=== PATIENT | female | born 1940 | race Caucasian/White ===

== ENCOUNTER 2017-06-07 01:09 | Emergency (ER) | payer MEDICARE, OTHER ==
[2017-06-07 01:09] VITALS: BMI 28.5
[2017-06-07 01:25] VITALS: O2SAT 100
--- NOTE | 2017-06-07 02:03 | C.PDOC ---
History Of Present Illness 76 year old female with a Hx of HTN and diabetes presents to the ER with a complaint of several days of a room spinning sensation, associated with ringing in the right ear. Patient states it occurs when she looks up, raises her chin, or turns her head to either side of the room. Denies headache, recent URI, ear pain, or sore throat. Chief Complaint (Nursing): Dizziness/Lightheaded History Per: Patient History/Exam Limitations: no limitations Onset/Duration Of Symptoms: Days Current Symptoms Are (Timing): Still Present Activity At Onset Of Symptoms: Other (not known) Seizure Or Post-ictal Symptoms: None Possible Causative Factor(s): Vertigo Fall Associated With With Symptoms: No Recent travel outside of the [place]: No - Symptoms Of CVA Associated Symptoms: denies: Impaired Speech, Seizure Activity, New Vision Deficit(Left), New Vision Deficit(Right), Decreased Ability To Walk, New Confusion Past Medical History Reviewed: Historical Data, Nursing Documentation, Vital Signs Vital Signs: Last Vital Signs Temp 98.2 F 06/07/17 01:23 Pulse 108 H 06/07/17 01:23 Resp 18 06/07/17 01:23 BP 172/76 H 06/07/17 01:23 Pulse Ox 100 06/07/17 02:18 - Medical History PMH: Diabetes, HTN, Peripheral Edema ("SOMETIMES IF I EAT THE WRONG FOODS") Surgical History: Appendectomy - [facility] Procedures PH[facility]ICAL THERAPY [facility] (10/04/14) Family History: States: Unknown Family Hx - Social History Hx Alcohol Use: No Hx Substance Use: No - Immunization History Hx Tetanus Toxoid Vaccination: No Hx Influenza Vaccination: No Hx Pneumococcal Vaccination: No Review Of Systems Constitutional: Negative for: Fever, Chills ENT: Positive for: Other (Right ear ringing). Negative for: Ear Pain, Throat Pain Respiratory: Negative for: Cough, Sputum Gastrointestinal: Negative for: Nausea, Vomiting Neurological: Positive for: Dizziness (Room spinning sensation). Negative for: Weakness, Numbness, Headache Physical Exam - Physical Exam Appears: Non-toxic, No Acute Distress Skin: Normal Color, Warm, Dry Head: Atraumatic, Normacephalic Eye(s): bilateral: Normal Inspection, PERRL, EOMI Ear(s): Bilateral: Normal Nose: Normal Oral Mucosa: Moist Throat: Normal, No Erythema, No Exudate Neck: Normal, Supple Chest: Symmetrical, No Tenderness Cardiovascular: Rhythm Regular Respiratory: Normal Breath Sounds, No Rales, No Rhonchi, No Wheezing Gastrointestinal/Abdominal: Soft, No Tenderness Extremity: Normal ROM (x4) Neurological/Psych: Oriented x3, Normal Speech, Normal Cognition, Normal Cranial Nerves, Normal Motor, Normal Sensation, Other (Reproducible symptoms when turning head to the left and extension of neck) Extremity: Right: No Drift, Left: No Drift, Upper: No Drift, Lower: No Drift ED Course And Treatment - Laboratory Results Result Diagrams: 06/07/17 02:11 06/07/17 02:11 O2 Sat by Pulse Oximetry: 100 (room air) Pulse Ox Interpretation: Normal Medical Decision Making Medical Decision Making: Impression is benign positional vertigo, will send routine labs and order CT head. Disposition - Disposition Referrals: [facility] [Outside] Disposition: HOME/ ROUTINE Disposition Time: 04:00 Condition: FAIR Prescriptions: Meclizine [Antivert] 25 mg PO TID #15 tab Forms: [employer] (Kinyarwanda) - Clinical Impression Clinical Impression: Vertigo - Scribe Statement The provider has reviewed the documentation as recorded by the Scribe Edilberto Reagan All medical record entries made by the Scribe were at my direction and personally dictated by me. I have reviewed the chart and agree that the record accurately reflects my personal performance of the history, physical exam, medical decision making, and the department course for this patient. I have also personally directed, reviewed, and agree with the discharge instructions and disposition.
[2017-06-07 02:14] LABS: BASO % 0.5 % (0.0-2.0); EOS # 0.4 K/uL (0.0-0.7); EOS % 4.4 % (0.0-4.0); LYMPH # 1.9 K/uL (1.0-4.3); LYMPH % 22.8 % (20.0-40.0); MEAN CORPUSCULAR HEMOGLOBIN 27.9 pg (27.0-31.0); MEAN CORPUSCULAR HGB CONC 33.6 g/dL (33.0-37.0); MEAN PLATELET VOLUME 8.5 fL (7.2-11.7); MONO # 0.2 K/uL (0.0-0.8); MONO % 2.6 % (0.0-10.0); NEUT # 5.8 K/uL (1.8-7.0); NEUT % 69.7 % (50.0-75.0); RBC 3.94 Mil/uL (3.80-5.20); RED CELL DISTRIBUTION WIDTH 12.8 % (11.5-14.5); WHITE BLOOD COUNT 8.4 K/uL (4.8-10.8)
[2017-06-07 02:49] LABS: ALB/GLOB RATIO 1.2 (1.0-2.1); ALBUMIN 4.3 g/dL (3.5-5.0); ALT/SGPT 7 U/L (9-52); AST/SGOT 15 U/L (14-36); BLOOD UREA NITROGEN 20 mg/dL (7-17); CALCIUM 9.7 mg/dl (8.6-10.4); GFR AFRICAN-AMERICAN > 60; GFR NON-AFRICAN AMERICAN > 60
--- NOTE | 2017-06-07 03:31 | CT ---
EXAM: CT Head Without Intravenous Contrast CLINICAL HISTORY: 76 years old, female; Pain; Headache; Patient HX: 9 images sent TECHNIQUE: Axial computed tomography images of the head/brain without intravenous contrast. All CT scans at this facility use one or more dose reduction techniques, viz.: automated exposure control; ma/kV adjustment per patient size (including targeted exams where dose is matched to indication; i.e. head); or iterative reconstruction technique. Coronal and sagittal reformatted images were created and reviewed. COMPARISON: CT - HEAD W/O CONTRAST 2015-11-14 20:30 FINDINGS: Brain: [id number] atrophy. No intracranial hemorrhage. No mass. Several scattered foci of decreased attenuation within periventricular/subcortical white matter. No definite edema. Ventricles: No hydrocephalus. Bones/joints: No acute fracture. Soft tissues: Unremarkable. Vasculature: Mild atherosclerotic disease of intracranial arteries. Sinuses: No acute sinusitis. Mastoid air cells: No mastoid effusion. Orbits: Unremarkable as visualized. IMPRESSION: 1. Nonspecific white matter changes. Acute infarction may be CT occult within first 24 hours. If a focal deficit persists, consider followup CT or MRI for further evaluation. 2. Incidental/non-acute findings are described above.
[2017-06-07 04:03] VITALS: BP 141/64; PULSE 88; TEMP 98.7
[2017-06-07 04:21] VITALS: RESP 18
--- NOTE | 2017-06-10 17:51 | CARD ---
APPROVED REPORT EKG Measurement Heart [id number] <Conclusion> Sinus tachycardia Otherwise normal ECG
== END 2017-06-07 04:15 | disposition home or self-care (01) ==
LOC: C.ER 01:09
DX: R42 Dizziness and giddiness (principal)